=== PATIENT | female | born 1970 | race Caucasian/White ===

== ENCOUNTER → 2018-01-17 | Outpatient (CLI) | payer OTHER ==
[2018-01-19 17:07] LABS: HPV 16 Negative (Negative); HPV 18 Negative (Negative); HPV OTHER HR TYPES Negative (Negative)
== END | disposition home or self-care (01) ==
LOC: LAB SHORT 15:10 → LAB 15:10
PROVIDERS: Obstetrics & Gynecology
DX: Z01.419 Encounter for gynecological examination (general) (routine) without abnormal findings (principal)
CPT/HCPCS: 87624; G0123

== ENCOUNTER 2019-05-22 06:04 | Day surgery (SDC) | payer OTHER ==
[~2019-05-22] VITALS: Ht 162.6 cm; Wt 82.9 kg
--- NOTE | 2019-05-22 06:43 | NUR ---
PT ADMITTED TO [facility]. AGREES WITH PLANNED SURGERY. LUNG SOUNDS CLEAR.
--- NOTE | 2019-05-22 10:28 | NUR ---
Dressing to procedure site clean, dry, intact with no visible drainage, swelling, erythema or bruising noted. CMS INTACT, MOVES FINGERS WELL. REPORTS PAIN 4/10. C/O SOME NAUSEA. PT C/O BEING VERY TIRED. BIOX ABOUT 89-92% ON ROOM AIR. ENCOURAGE TO TAKE DEEP BREATHS AND COUGH. PT COUGH WEAK. PT FALLS ASLEEP QUICKLY AND RESPONSE TO VERBAL STIMULI.
--- NOTE | 2019-05-22 11:07 | NUR ---
PT HAS TOLERATED PO FLUIDS AND FOOD. PO PAIN MEDICATION PROVIDED. PT ABLE TO MOVE FINGERS SOME BUT NOT FULL ROM AT THIS TIME DUE TO BLOCK DURING SURGERY.
--- NOTE | 2019-05-22 11:26 | NUR ---
Discharge instructions reviewed with patient. Patient verbalizes understanding. Copy given to patient to take home. PT ASSISTED TO GET DRESSED. SLING PROVIDED. CALLED AND HE IS WAITING FOR PT IN THE PARKING LOCK. PT ESCORTED OUT OF DEPARTMENT BY TRANSPORT HOME.
== END 2019-05-22 11:26 | disposition home or self-care (01) ==
LOC: ORSCMMR 06:04 → ORD 07:30 → ORSCMMR 07:30 → ORD 12:30
PROVIDERS: Orthopaedic Surgery
PROC: 0PSJ04Z Reposition Left Radius with Internal Fixation Device, Open Approach (ICD-10-PCS; principal; 2019-05-22 07:30)
DX: S52.572A Other intraarticular fracture of lower end of left radius, initial encounter for closed fracture (principal); W18.31XA Fall on same level due to stepping on an object, initial encounter
CPT/HCPCS: C1713; J0690; J2250; J2405; J2704; J3010; J7120